=== PATIENT | male | born 1990 | race African-American/Black ===

== ENCOUNTER 2019-05-15 08:31 | Emergency (ER) | payer OTHER ==
[2019-05-15] MEDS ORDERED: Adacel (T-DAP) 0.5 ML SYRINGE ONE (08:40)
[2019-05-15 08:56] LABS: #Basophils 0.1 thou/uL (0.0-0.2); #Eosinphils 0.1 thou/uL (0.0-0.7); #Lymphocytes 1.2 thou/uL (1.20-3.40); #Monocytes 0.3 thou/uL (0.11-0.59); #Neutrophils 4.1 thou/uL (1.40-6.50); %Basophils 0.9 % (0.0-1.0); %Eosinophils 2.1 % (0.0-10.0); %Lymphocytes 20.6 % (21.0-51.0); %Monocytes 5.9 % (0.0-10.0); %Neutrophils 70.5 % (42.0-75.0); Hemoglobin 10.6 g/dL (14.0-18.0); Mean Corpuscular HGB CONC 31.9 g/dL (32.0-36.0); Mean Corpuscular Hemoglobin 28.9 pg (27.0-31.0); Mean Corpuscular Volume 90.5 fL (78.0-98.0); Mean Platelet Volume 7.7 fL (7.4-10.4); Platelet Count 253 thou/uL (130-400); RBC Distribution Width 15.4 % (11.5-14.5); Red Blood Cell (RBC) Count 3.66 mill/uL (4.70-6.10); White Blood Cell (WBC) Count 5.8 thou/uL (4.8-10.8)
[2019-05-15] MEDS ORDERED: Iopamidol 370 76% 100 ML VIAL ONE (09:00)
[2019-05-15 09:13] LABS: Anion Gap 14 mmol/L (10-20); BUN (Urea Nitrogen) 17 mg/dL (8.9-20.6); Calc. Creatinine Clearance 0 mL/min (70-130); Calcium 9.1 mg/dL (7.8-10.44); Carbon Dioxide 24 mmol/L (22-29); Chloride 104 mmol/L (98-107); Estimated GFR-MDRD 81; Glucose 95 mg/dL (70-105); Sodium 138 mmol/L (136-145)
[2019-05-15] MEDS ORDERED: Triple Antibiotic Oint 1 GM Packet ONE (09:25)
[2019-05-15] MEDS ORDERED: Ketorolac Tromethamine 30 MG/ML VIAL ONE (09:25)
--- NOTE | 2019-05-15 12:41 | CT ---
CT OF CERVICAL SPINE NONCONTRAST: INDICATION: Pain. FINDINGS: There is no evidence of acute fracture or malalignment. Craniocervical junction is intact. Disk spa ce heights are relatively well preserved. No acute facet malalignment or retropulsion of bone into t he vertebral canal. IMPRESSION: No acute osseous abnormality of the cervical spine. POS: [facility]
--- NOTE | 2019-05-15 13:14 | CT ---
CT CHEST WITH CONTRAST: INDICATION: Posttraumatic pain. FINDINGS: Lungs are clear. No effusion or pneumothorax. No acute osseous abnormality visualized. Thoracic aorta is nonaneurysmal. IMPRESSION: No acute posttraumatic sequelae of the chest. POS: [facility]
== END 2019-05-15 09:54 | disposition home or self-care (01) ==
LOC: NAV ERS 08:31
DX: S20.211A Contusion of right front wall of thorax, initial encounter (principal); S60.511A Abrasion of right hand, initial encounter; S40.811A Abrasion of right upper arm, initial encounter; Z23 Encounter for immunization; V49.9XXA Car occupant (driver) (passenger) injured in unspecified traffic accident, initial encounter
CPT/HCPCS: 71260; 72125; 80048; 85025; 90471; 90715; G0390; J1885; Q9967